=== PATIENT | female | born 1980 | race Caucasian/White ===

== ENCOUNTER 2017-05-15 21:48 | Emergency (ER) | payer OTHER ==
[~2017-05-15] VITALS: Ht 157.5 cm; Wt 63.2 kg
[~2017-05-15 21:48] MED LIST: ACET325T33 PO; CODE118S PO; IBUP-1542 PO; OSLT75C PO
[2017-05-15 22:56] VITALS: Ht 157.5 cm; Wt 63.2 kg
[2017-05-16] MEDS ORDERED: ERYT1OIN6 OP (02:31)
--- NOTE | 2017-05-16 03:06 | ERD ---
ER Documentation Chief Complaint Chief Complaint Right upper eyelid REDNESS +DISCHARGE SINCE THIS MORNING. HPI 36-year-old female presents here to emergency department for complaints of right upper eyelid redness and swelling and some discharge coming out of it started this morning. Patient's complaint of pain sharp pain 4/10 scale, as was upon touching the area. Patient denies any discharge coming from the conjunctiva. Patient denies any vision changes. Patient denies any trauma in the eye. ROS All systems reviewed and are negative except as per history of present illness. Medications Home Meds Active Scripts Erythromycin Base (Erythromycin) 1 Gm Oint...g., 1 GM OP Q6, #7 Prov:JAMILAH BLACK NP 05/16/17 Oseltamivir Phosphate* (Tamiflu*) 75 Mg Capsule, 75 MG PO BID for 5 Days, CAP Prov:YESSI GRACIA MD 12/29/15 Ibuprofen* (Motrin*) 600 Mg Tab, 600 MG PO Q6H Y for PAIN, #20 TAB Prov:YESSI GARCIA MD 12/29/15 Promethazine w/Codeine (Phenergan w/Codeine Syrup) 5 Ml Syrup, 5 ML PO Q6 Y for COUGH for 4 Days, ML Prov:YESSI GARCIA MD 12/29/15 Acetaminophen* (Tylenol*) 325 Mg Tablet, 2 TAB PO Q8 Y for PAIN AND OR ELEVATED TEMP, #20 TAB Prov:YENI CARDENAS DO 07/19/15 Reported Medications [None] No Conflict Check 08/16/11 Allergies Allergies: Coded Allergies: No Known Allergies (Verified Allergy, Unknown, 05/15/17) PMhx/Soc Medical and Surgical Hx: pt denies Medical Hx, pt denies Surgical Hx History of Surgery: No Anesthesia Reaction: No Hx Neurological Disorder: No Hx Respiratory Disorders: No Hx Cardiac Disorders: No Hx Psychiatric Problems: No Hx Miscellaneous Medical Probl: No Hx Alcohol Use: No Hx Substance Use: Yes (marijuana) Hx Tobacco Use: No Smoking Status: Never smoker FmHx Family History: No coronary disease, No diabetes, No other Physical Exam Vitals Vital Signs Date Time Temp Pulse Resp B/P Pulse Ox O2 Delivery O2 Flow Rate FiO2 05/15/17 22:56 97.9 93 20 149/81 98 Physical Exam GENERAL: The patient is well developed and appropriate for usual state of health, in no apparent distress. HEENT: Atraumatic. Right upper eyelid to be erythematous and swollen. Left upper and lower eyelids are normal. No eye discharge. Bilateral eyes are PERRLA EOM intact. Ears: Normal tympanic membrane, no erythema or bulging. No ear canal swelling. No ear discharge. Nose: normal nasal turbinates, no erythema or swelling. Normal nasal discharge. Throat: oropharynx clear. No tonsillar swelling or tonsillar exudates. No lymphadenopathy. CHEST: Clear to auscultation bilaterally. There are no rales, wheezes or rhonchi. HEART: Regular rate and rhythm. No murmurs, clicks, rubs or gallops. No S3 or S4. ABDOMEN: Soft, nontender and nondistended. Good bowel sounds. No rebound or guarding. No gross peritonitis. No gross organomegaly or masses. No Garcia sign or McBurney point tenderness. BACK: No midline or flank tenderness. EXTREMITIES: Equal pulses bilaterally. There is no peripheral clubbing, cyanosis or edema. No focal swelling or erythema. Full range of motion. Grossly neurovascularly intact. NEURO: Alert and oriented. Cranial nerves 2-12 intact. Motor strength in all 4 extremities with 5/5 strength. Sensation grossly intact. Normal speech and gait. SKIN: There is no apparent rash or petechia. The skin is warm and dry. HEMATOLOGIC AND LYMPHATIC: There is no evidence of excessive bruising or lymphedema. No gross cervical, axillary, or inguinal lymphadenopathy. Procedures/MDM Medical decision making: Patient symptoms was likely is consistent with blepharitis. No symptoms of cellulitis or orbital cellulitis periorbital cellulitis. No conjunctivitis noted. No symptoms of any eye emergencies. Prescription was for given for erythromycin, was advised to follow-up with primary doctor in 2-3 days for reevaluation of symptoms. Patient is advised to return to emergency department for any worsening symptoms. Disposition: Home. Stable Departure Diagnosis: Primary Impression: Blepharitis Blepharitis type: unspecified type Laterality: right Eyelid: upper Qualified Code: H01.001 - Blepharitis of right upper eyelid, unspecified type Condition: Stable Patient Instructions: KasiaphaJAMILAH Urbina NP May 16, 2017 03:06
== END 2017-05-16 02:51 | disposition home or self-care (01) ==
LOC: FTE 21:48
DX: H01.001 Unspecified blepharitis right upper eyelid (principal)
CPT/HCPCS: 99283